=== PATIENT | male | born 1960 | race Caucasian/White ===

== ENCOUNTER 2024-11-01 08:52 | Outpatient (CLI) | payer BC | END 2024-11-01 08:53 | disposition home or self-care (01) | LOC: CSHSLEEP 08:52 | PROVIDERS: ATTEND Internal Medicine | DX: G47.33 Obstructive sleep apnea (adult) (pediatric) (principal); R53.83 Other fatigue; R06.83 Snoring; G47.00 Insomnia, unspecified; R35.1 Nocturia; G47.10 Hypersomnia, unspecified | CPT/HCPCS: 95800 ==